=== PATIENT | male | born 1965 | race Caucasian/White ===

== ENCOUNTER → 2018-03-01 | Outpatient (CLI) | payer OTHER ==
--- NOTE | 2018-03-01 13:45 | PCVCIMAG ---
APPROVED REPORT Study performed: 03/01/2018 12:25:13 EXAM: Comprehensive 2D, Doppler, and color-flow Echocardiogram Patient Location: Echo lab Status: routine BSA: 1.91 HR: 63 bpmBP: 110/76 mmHg Rhythm: NSR Other Information Study Quality: Adequate Indications Abnormal ECG Dyspnea Chest Pain 2D Dimensions IVSd: 11.29 (7-11mm) LVDd: 44.68 mm PWd: 10.97 (7-11mm)Ascending Ao: 33.68 (22-36mm) LVDs: 32.30 (25-40mm) Left Atrium: 38.32 (27-40mm) Aortic Root: 34.70 mm LV Single Plane 4CH: 63.25 % LV Single Plane 2CH: 68.82 % Biplane EF: 66.3 % Volumes Left Atrial Volume (Systole) Single Plane 4CH: 55.52 mLSingle Plane 2CH: 81.98 mL LA ESV Index: 38.00 mL/m2 Aortic Valve AoV Peak Wenceslao.: 1.38 m/s AO Peak Gr.: 7.66 mmHgLVOT Max P.83 mmHg LVOT Max V: 1.10 m/s Mitral Valve E/A Ratio: 1.3 MV Decel. Time: 211.32 ms MV E Max Wenceslao.: 0.62 m/s MV A Wenceslao.: 0.46 m/s IVRT: 100.35 ms Pulmonary Valve PV Peak Wenceslao.: 0.71 m/sPV Peak Gr.: 2.04 mmHg Pulmonary Vein P Vein S: 0.24 m/sP Vein A: 0.34 m/s P Vein D: 0.41 m/sP Vein A Dur.: 114.2 msec P Vein S/D Ratio: 0.59 Tricuspid Valve TR Peak Wenceslao.: 2.69 m/s TR Peak Gr.: 29.03 mmHg TV Vmax: 0.50 m/s Left Ventricle The left ventricle is normal size. There is normal LV segmental wall motion. There is normal left ventricular wall thickness. Left ventricular systolic function is normal. The left ventricular ejection fraction is within the normal range. LVEF is 60-65%. Right Ventricle The right ventricle is normal size. The right ventricular systolic function is normal. Atria Left atrium is mildly dilated. Right atrium is mildly dilated. Aortic Valve The aortic valve is normal in structure. Mild aortic regurgitation. There is no aortic valvular stenosis. Mitral Valve The mitral valve is normal in structure. There is no mitral valve regurgitation noted. No evidence of mitral valve stenosis. Tricuspid Valve The tricuspid valve is normal in structure. Mild tricuspid regurgitation with PAP of 36 mmHg. Pulmonic Valve The pulmonary valve is normal in structure. There is no pulmonic valvular regurgitation. Great Vessels The aortic root is normal in size. IVC is normal in size and collapses >50% with inspiration. Pericardium There is no pericardial effusion. There is no pleural effusion. <Conclusion> The left ventricle is normal size. There is normal left ventricular wall thickness. Left ventricular systolic function is normal. The right ventricle is normal size. Left atrium is mildly dilated. Right atrium is mildly dilated. Mild aortic regurgitation. The mitral valve is normal in structure. Mild tricuspid regurgitation with PAP of 36 mmHg.
--- NOTE | 2018-03-01 13:48 | PCVCIMAG ---
APPROVED REPORT Patient Location: Echo lab Room #: Stress Nurse: Luzmaria Ya RN Treadmill Stress Test Indications- chest pain, dyspnea, abn ekg The patient exercised according to the ALLYSSA protocol for13:31 mins; achieving a work level of 17.5 METS. The resting heart rate of 68 bpm ifrah to a maximum heart rate of 184 bpm. This value represent 110% of the maximal, age-predicted heart rate. The resting blood pressure of 110/76 mmHg, ifrah to a maximum blood pressure of 196/94 mmHg. The exercise test was stopped due to fatigue. Conclusion 1. Clinical response, nonischemic. 2. Stress ECG response, nonischemic. 3. Exercise capacity, superior.
== END | disposition home or self-care (01) ==
LOC: PCVCIMAG 12:49
PROVIDERS: ATTEND Internal Medicine Cardiovascular Disease
DX: I08.2 Rheumatic disorders of both aortic and tricuspid valves (principal); R07.9 Chest pain, unspecified; R06.00 Dyspnea, unspecified
CPT/HCPCS: 93017; 93306